=== PATIENT | female | born 1990 | race Two or more races ===

== ENCOUNTER 2022-10-31 11:46 | Emergency (ER) | payer MEDICAID, OTHER ==
[~2022-10-31] VITALS: Ht 165.1 cm; Wt 86.0 kg
[2022-10-31] MEDS ORDERED: IBUP800T26 PO (13:42)
[2022-10-31 13:50] VITALS: BP 115/67
== END 2022-10-31 13:42 | disposition home or self-care (01) ==
LOC: ER 11:46
DX: S16.1XXA Strain of muscle, fascia and tendon at neck level, initial encounter (principal); S39.012A Strain of muscle, fascia and tendon of lower back, initial encounter; V89.2XXA Person injured in unspecified motor-vehicle accident, traffic, initial encounter; Y93.I9 Activity, other involving external motion; Y92.89 Other specified places as the place of occurrence of the external cause; Y99.8 Other external cause status
CPT/HCPCS: 72040; 72100

== ENCOUNTER 2024-01-31 10:35 | Emergency (ER) | payer MEDICAID, OTHER ==
[~2024-01-31] VITALS: Ht 162.6 cm; Wt 92.7 kg
[~2024-01-31 10:35] MED LIST: IBUP-1455 PO
[2024-01-31] MEDS ORDERED: IBUP1TAB5 PO (12:54)
[2024-01-31] MEDS ORDERED: PRED20TA2 PO (12:54)
[2024-01-31] MEDS: IBUPROFEN 600 MG TAB PO ONE (13:31)
[2024-01-31] MEDS: predniSONE 20 MG TAB PO ONE (13:34)
[2024-01-31 13:53] VITALS: BP 121/80; PULSE 69; RESP 18; TEMP 98.4; O2SAT 99
== END 2024-01-31 13:55 | disposition home or self-care (01) ==
LOC: ER 10:35
DX: S90.464A Insect bite (nonvenomous), right lesser toe(s), initial encounter (principal); W57.XXXA Bitten or stung by nonvenomous insect and other nonvenomous arthropods, initial encounter; Y93.89 Activity, other specified; Y92.89 Other specified places as the place of occurrence of the external cause; Y99.8 Other external cause status
CPT/HCPCS: 99283; J7512